=== PATIENT | female | born 1995 | race Caucasian/White ===

== ENCOUNTER 2019-10-30 13:33 | Emergency (ER) | payer OTHER ==
--- NOTE | 2019-10-30 14:29 | EDM.PDOC ---
ED HPI GENERAL MEDICAL PROBLEM - General Chief Complaint: General Stated Complaint: BLEEDING POST SURGERY Time Seen by Provider: 10/30/19 14:29 Source of Information: Reports: Patient History Limitations: Reports: No Limitations - History of Present Illness INITIAL COMMENTS - FREE TEXT/NARRATIVE: 24 years old female patient presented to the ER with a chief complaint of heavy vaginal bleeding started this morning. Denies any trauma or injury. She had laparoscopy 5 days ago for endometriosis at [facility]. Some nausea but no vomiting. Mild abdominal discomfort. Denies any fever. Denies any diarrhea or constipation. Denies any urinary symptom. Denies any cough or chest pain or shortness breath. Denies any dizziness. Uterine Pain Score (Numeric/FACES): 5 - Related Data Allergies Allergy/AdvReac Type Severity Reaction Status Date / Time hydrocodone Allergy Hives Verified 10/30/19 14:02 Penicillins Allergy Hives Verified 10/30/19 14:02 Sulfa (Sulfonamide Allergy Hives Verified 10/30/19 14:02 Antibiotics) tramadol Allergy Hives Verified 10/30/19 14:02 Home Meds: Home Meds Omeprazole [Prilosec] 40 mg PO BEDTIME #30 capsule. 12/07/13 [Rx] oxyCODONE 5 mg PO Q4H PRN 10/30/19 [History] Past Medical History HEENT History: Reports: Impaired Vision [employer] History: Reports: Spontaneous Musculoskeletal History: Reports: Fracture Other Musculoskeletal History: ankle r hand Neurological History: Reports: Concussion Psychiatric History: Reports: Anxiety, Bipolar, Depression - Infectious Disease History Infectious Disease History: Reports: Chicken Pox - Past Surgical History HEENT Surgical History: Reports: Tonsillectomy GI Surgical History: Reports: Appendectomy Female Surgical History: Reports: Oophorectomy Social & Family History - Tobacco Use Smoking Status *Q: Current Every Day Smoker Years of Tobacco use: 3 Packs/Tins Daily: 0.5 Used Tobacco, but Quit: No Second Hand Smoke Exposure: Yes - Caffeine Use Caffeine Use: Reports: Energy Drinks - Recreational Drug Use Recreational Drug Use: No ED ROS GENERAL - Review of Systems Review Of Systems: Comprehensive ROS is negative, except as noted in HPI. ED EXAM, GENERAL - Physical Exam Exam: See Below (Chest) Exam Limited By: No Limitations General Appearance: Alert, WD/WN, No Apparent Distress Head: Atraumatic, Normocephalic Neck: Normal Inspection, Supple, Non-Tender, Full Range of Motion Respiratory/Chest: No Respiratory Distress, Lungs Clear, Normal Breath Sounds, No Accessory Muscle Use, Chest Non-Tender Cardiovascular: Normal Peripheral Pulses, Regular Rate, Rhythm, No Edema, No Gallop, No JVD, No Murmur, No Rub GI/Abdominal: Normal Bowel Sounds, Soft, No Organomegaly, No Distention, No Abnormal Bruit, No Mass, Tender, Other (Appropriate abdominal tenderness postoperative. Surgical scar clean dry. No erythema no discharge.) (Female) Exam: Normal External Exam, Vaginal Bleeding, Other (Cervix is closed. Mild active vaginal bleeding. Blood clot was pulled out.). No: Adnexal Mass, Adnexal Tenderness (To do want residual signs of degenerative using the but Elizabeth gives IV fluid of Z1 refused ambulance taken sign and diffuse), Cervical Discharge, Cervical Lesions, Cervix Motion Tenderness, Enlarged Uterus , Vaginal Lesions, Vaginal Tears Extremities: Normal Inspection, Normal Range of Motion, Non-Tender, Normal Capillary Refill, No Pedal Edema Neurological: Alert, Oriented, CN II-XII Intact, Normal Cognition, Normal Gait, Normal Reflexes, No Motor/Sensory Deficits Psychiatric: Normal Affect, Normal Mood Skin Exam: Warm, Dry, Intact, Normal Color, No Rash Course - Vital Signs Last Recorded V/S: Last Vital Signs Temp 37.0 C 10/30/19 15:21 Pulse 72 10/30/19 15:21 Resp 14 10/30/19 15:21 BP 131/84 10/30/19 15:21 Pulse Ox 100 10/30/19 15:21 - Orders/Labs/Meds Labs: Laboratory Tests 10/30/19 10/30/19 10/30/19 Range/Units 15:01 15:01 15:01 WBC 5.8 (4.5-11.0) K/uL RBC 4.32 (3.30-5.50) M/uL Hgb 13.4 (12.0-15.0) g/dL Hct 40.1 (36.0-48.0) % MCV 93 (80-98) fL MCH 31 (27-31) pg MCHC 33 (32-36) % Plt Count 196 (150-400) K/uL Neut % (Auto) 66 (36-66) % Lymph % (Auto) 25 (24-44) % Mccracken % (Auto) 6 (2-6) % Eos % (Auto) 2 (2-4) % Baso % (Auto) 0 (0-1) % PT 10.8 (9.5-12.0) sec INR 1.00 (0.80-1.20) Sodium 139 L (140-148) mmol/L Potassium 3.8 (3.6-5.2) mmol/L Chloride 103 (100-108) mmol/L Carbon Dioxide 27 (21-32) mmol/L Anion Gap 12.8 (5.0-14.0) mmol/L BUN 11 (7-18) mg/dL Creatinine 0.7 (0.6-1.0) mg/dL Est Cr Clr Drug Dosing 97.36 mL/min Estimated GFR (MDRD) > 60 (>60) Glucose 100 (74-106) mg/dL Calcium 8.8 (8.5-10.1) mg/dL Total Bilirubin 0.4 (0.2-1.0) mg/dL AST 19 (15-37) U/L ALT 31 (12-78) U/L Alkaline Phosphatase 62 (46-116) U/L Total Protein 7.8 (6.4-8.2) g/dL Albumin 4.9 (3.4-5.0) g/dL Globulin 2.9 (2.3-3.5) g/dL Albumin/Globulin Ratio 1.7 (1.2-2.2) Meds: Medications Discontinued Medications Generic Name Dose Route Start Last Admin Trade Name Freq PRN Reason Stop Dose Admin Sodium Chloride 1,000 mls @ 999 mls/hr 10/30/19 14:55 10/30/19 15:20 Normal Saline IV 10/30/19 15:55 999 mls/hr .BOLUS STA Administration - Re-Assessments/Exams Free Text/Narrative Re-Assessment/Exam: 10/30/19 14:55 Patient was seen and examined shortly after arrival. The stable. Given 1 L normal saline bolus. Lab and imaging reviewed with the patient. Ultrasound did not show any significant acute abnormalities. Normal ovaries. Normal ovarian blood flow. No sign of torsion. 3.5 cm clot proximal to the cervix. Inside the uterus. I did consulted with [employer] business development consultant at [employer] , she recommended starting the patient on the Sprintec oral contraceptive pills. Rest , hydration, close follow-up with her [employer]. Come back for any concern or any worsening symptom. Patient hemoglobin is stable 50.4. She is not hypotensive or tachycardic. Hemodynamically stable. She is not dizzy. Bleeding slowed down. Patient feeling much better and stable for discharge. Advised to come back for any concern or any worsening symptom. Patient agrees with the plan. Stable for discharge. 10/30/19 19:44 Departure - Departure Time of Disposition: 16:37 Disposition: Home, Self-Care 01 Condition: Good Clinical Impression: Vaginal bleeding - Discharge Information *PRESCRIPTION DRUG MONITORING PROGRAM REVIEWED*: Not Applicable *COPY OF PRESCRIPTION DRUG MONITORING REPORT IN PATIENT ROBERT: Not Applicable Instructions: Dysfunctional Uterine Bleeding Referrals: PCP,None [Primary Care Provider] - Forms: ED Department Discharge Additional Instructions: Rest and stay well-hydrated Close follow-up with PCP or your [employer]ER within 2 or 3 days Come back for any concern or any worsening symptom Sepsis Event Note - Evaluation Sepsis Screening Result: No Definite Risk - Focused Exam Vital Signs: Vital Signs Temp Pulse Resp BP Pulse Ox 10/30/19 15:21 37.0 C 72 14 131/84 100 10/30/19 14:01 36.6 C 85 13 116/74 99 10/30/19 13:53 36.6 C 85 13 116/74 99 Date Exam was Performed: 10/30/19 Time Exam was Performed: 19:41 - Assessment/Plan Plan: Rest and stay well-hydrated Close follow-up with PCP or your [employer]ER within 2 or 3 days Come back for any concern or any worsening symptom
[2019-10-30] MEDS ORDERED: Sodium Chloride 0.9% 1,000 ML IV STA (14:55)
--- NOTE | 2019-10-30 17:07 | CRLUS ---
TECHNIQUE: Transabdominal pelvic ultrasound. Patient deferred transvaginal portion due to obtained. INDICATION: Vaginal bleeding, pain, laparoscopy for endometriosis 2 days ago. FINDINGS: Uterus measures 8.4 x 4.4 x 4.8 cm. Endometrial stripe measures 4 mm. There is an IUD within the uterus. 3.4 cm vague hyperechoic area within the lower uterine segment, difficult to evaluate on trans abdominal ultrasound. It is possible that this represents clot. Both ovaries are unremarkable and have normal color spectral Doppler flow. IMPRESSION: 1. Vanc hyperechoic area in the lower uterine segment, possibly cleft. 2. IUD within the uterus. Dictated by Balwinder Wilkerson MD @ 10/30/2019 5:05:20 PM Dictated by: Balwinder Wilkerson MD @ 10/30/2019 17:05:26 (Electronically Signed)
== END 2019-10-30 16:56 | disposition home or self-care (01) ==
LOC: JP.ED 13:33
DX: N93.9 Abnormal uterine and vaginal bleeding, unspecified (principal); F17.210 Nicotine dependence, cigarettes, uncomplicated; Z88.5 Allergy status to narcotic agent; Z88.0 Allergy status to penicillin; Z88.2 Allergy status to sulfonamides
CPT/HCPCS: 36415; 76856; 80053; 85025; 85610; 96360; 99284; J7030